=== PATIENT | female | born 1970 | race Caucasian/White ===

== ENCOUNTER 2020-05-15 09:54 | Emergency (ER) | payer OTHER, SELFPAY ==
[2020-05-15 09:58] VITALS: BP 117/70; PULSE 73; RESP 16; TEMP 36.6; O2SAT 100
--- NOTE | 2020-05-15 10:00 | ED.FEMALEGU ---
HPI - Female Genitourinary General Chief complaint: Urogenital-Female Stated complaint: headache aches frequent urination Time Seen by Provider: 05/15/20 10:01 Source: patient History of Present Illness HPI Narrative: PATIENT PRESENTS WITH BURNING WITH URINATION, NO CONCERN FOR STD, NO ABDOMINAl and no pelvic pain. no hx of kidney stones. Patient deneis any gross hematuria. MD elicited complaint: dysuria Related Data Home Medications Medication Instructions Recorded Confirmed bupropion HCl 150 mg PO DAILY 07/02/19 05/15/20 citalopram mg 07/02/19 meloxicam 15 mg tablet 15 mg PO DAILY 09/16/19 quetiapine 300 mg tablet 300 mg PO .qhs tablet 04/01/20 cyclobenzaprine 5 mg PO TID PRN 05/15/20 05/15/20 Allergies Allergy/AdvReac Type Severity Reaction Status Date / Time No Known Allergies Allergy Unknown Unverified 04/01/20 13:26 Review of Systems Review of Systems: Narrative: CONSTITUTIONAL: Denies fever, chills, or sweats. EYES: Denies visual changes, redness, or discharge. ENT: Denies rhinorrhea, congestion, sore throat, or otalgia. CARDIOVASCULAR: Denies chest pain, palpitations, or edema. RESPIRATORY: Denies cough or dyspnea. GASTROINTESTINAL: Denies abdominal pain, nausea, vomiting, or diarrhea. GENITOURINARY: Denies dysuria or hematuria. SKIN: Denies rash or itching. MUSCULOSKELETAL: Denies back pain, joint pain, or myalgia. NEUROLOGIC: Denies headache, numbness, or weakness. PSYCHIATRIC: Denies anxiety or depression. [facility] Social History Social History Smoking status: Heavy tobacco smoker Alcohol intake: current Substance use: current Other substance usage details: Tramadol Comments At time of signature, agree with nursing past medical, surgical, social and family history. There is no relevant family history pertinent to the presenting complaint Patient states she has had urinary tract infections in the past and usually presents with same symptoms as she has today. patient denies any upper resp infection. patient deneis any exposure to covid 19 and denies any cough or fever. Exam Narrative: Exam Narrative: GENERAL: Well-appearing, well-nourished, and in no acute distress. HEAD: Normocephalic, atraumatic. EYES: PERRLA and EOMI. ENT: Nares clear, no rhinorrhea or epistaxis. Mucous membranes moist. NECK: Supple. CHEST: Clear to auscultation. No respiratory distress. HEART: Regular rate and rhythm. No murmur heard. Normal peripheral pulses. ABDOMEN: Soft, nontender, nondistended, normal active bowel sounds. EXTREMITIES: Normal range of motion. No edema. SKIN: Warm, dry, no rash. NEURO: No focal deficits. Alert and oriented x3. [place] Coma Scale Eye Opening: Spontaneous 4 [place] Coma Scale Motor: Obeys Commands 6 [place]iella Coma Scale Verbal: Oriented 5 Daniella Coma Scale Total 15 Course Vital Signs Vital signs: Vital Signs Temperature 36.6 C 05/15/20 09:58 Pulse Rate 73 05/15/20 09:58 Respiratory Rate 16 05/15/20 09:58 Blood Pressure 117/70 05/15/20 09:58 Pulse Oximetry 100 05/15/20 09:58 Temperature 36.6 C 05/15/20 09:58 Pulse Rate 73 05/15/20 09:58 Respiratory Rate 16 05/15/20 09:58 Blood Pressure 117/70 05/15/20 09:58 Pulse Oximetry 100 05/15/20 09:58 MDM - Female Genitourinary Differential Diagnosis Differential diagnosis: Likely urinary tract infection, bacterial vaginosis, trichomoniasis, cervicitis, vaginitis, ruptured ovarian cyst, cyst of Bartholin's gland, cystitis and dysmenorrhea Lab Data Labs: Urine Glucose Negative Reference Range: Negative Urine Bilirubin Negative Reference Range: Negative Urine Ketone Negative Reference Range: Negative Urine Specific [place] 1.015 Reference Range:1.001-1.035 Urine Blood 1+ Reference Range: Negative * *
== END 2020-05-15 10:15 | disposition home or self-care (01) ==
PROVIDERS: Emergency Provider Nurse Practitioner Family; PCP Family Medicine
DX: N39.0 Urinary tract infection, site not specified (principal); F17.200 Nicotine dependence, unspecified, uncomplicated; I10 Essential (primary) hypertension; F41.9 Anxiety disorder, unspecified; F32.9 Major depressive disorder, single episode, unspecified
CPT/HCPCS: 81003; 87086; 87088; 99213; G0463

== ENCOUNTER 2021-08-30 10:38 | Emergency (ER) | payer MEDICARE, MEDICAID, SELFPAY ==
--- NOTE | 2021-08-30 10:45 | ED.GENADULT ---
HPI - General Adult General Chief complaint: Unspecified Stated complaint: Need meds Time Seen by Provider: 08/30/21 10:45 Source: patient and RN notes reviewed History of Present Illness HPI narrative: Patient is a 51-year-old female who presents the urgent care with request for med refill. Patient states that she has been out of her medications for approximately 2 months and has been having some headaches due to her elevated blood pressure. Patient is requesting Celebrex and lisinopril/HCTZ. Patient states that she went to a local physician who recently retired and she has not followed up in their office to see the new provider. Patient states that she plans on getting a new PCP in [place] when she moves in 2 weeks. Patient has no acute complaints at this time. No acute distress noted. Patient aware of the plan of care. Some parts of this dictation were generated by voice recognition software and may contain typographical and/or grammatical inaccuracies. Related Data Home Medications Medication Instructions Recorded Confirmed bupropion HCl 150 mg PO DAILY 07/02/19 08/30/21 citalopram 20 mg PO DAILY 07/02/19 08/30/21 quetiapine 300 mg PO HS 05/15/20 08/30/21 Allergies Allergy/AdvReac Type Severity Reaction Status Date / Time No Known Allergies Allergy Unknown Verified 08/30/21 10:51 Review of Systems Review of Systems: CONSTITUTIONAL: Denies fever, chills, or sweats. EYES: Denies visual changes, redness, or discharge. ENT: Denies rhinorrhea, congestion, sore throat, or otalgia. CARDIOVASCULAR: Denies chest pain, palpitations, or edema. RESPIRATORY: Denies cough or dyspnea. GASTROINTESTINAL: Denies abdominal pain, nausea, vomiting, or diarrhea. GENITOURINARY: Denies dysuria or hematuria. SKIN: Denies rash or itching. MUSCULOSKELETAL: Denies back pain, joint pain, or myalgia. NEUROLOGIC: Denies headache, numbness, or weakness. All other systems reviewed are negative, except as documented in HPI. [facility] Past Medical History Medical History (Updated 08/30/21 @ 11:02 by ABNER James) Anxiety Back pain Chronic back pain Bulging disks at L4 and L5 COPD (chronic obstructive pulmonary disease) Depression Fibroids Hypertension Tibia/fibula fracture Surgical History Surgical History H/O tubal ligation History of orthopedic surgery History of tonsillectomy Right tib/fib repair with plate and screws in 2010 Family History Family History Father Hypertension Mother Family history of lymphoma Social History Social History (Updated 10/28/20 @ 12:56 by Jacquelyn Rajan [facility]) Smoking packs per day: 0.5 Smoking cigarettes per day: 10.0 Years smoked: 30 Smoking pack-years: 15.00 Smoking status: Heavy tobacco smoker Alcohol intake: current Alcohol use details: 1 drink once or twice a month Substance use: never Other substance usage details: Tramadol Comments At the time of my signature, I reviewed and agree with the nursing past medical, surgical, social, and family history. There is no relevant family history pertinent to the patient complaint. Exam Narrative: GENERAL: This is a well-nourished, well-developed patient, in no apparent distress. HEAD: normocephalic, atraumatic. EYES: PERRL. Sclera clear/white. Vision is grossly intact. EARS: External ears normal NOSE: External nose normal with no obvious nasal discharge, nares without redness, no rhinorrhea. THROAT: Mucous membranes moist NECK: Neck supple, SKIN: warm, intact with no suspicious lesions or rash, good texture and turgor. NEURO: awake, alert, and oriented to person, place and time. There were no obvious focal neurologic abnormalities. EXTREMITIES: No clubbing, cyanosis, or edema. Course Course Level of Care: Express Care Visit Vital Signs Vital signs: Vital Signs Temperature 98.0 F 08/30
[2021-08-30 10:46] VITALS: BP 153/82; PULSE 60; RESP 18; TEMP 36.7; O2SAT 99
[2021-08-30 10:52] VITALS: BP 153/82; PULSE 60; RESP 18; TEMP 36.7; O2SAT 99
== END 2021-08-30 11:06 | disposition home or self-care (01) ==
PROVIDERS: Emergency Provider Nurse Practitioner Family
DX: Z76.0 Encounter for issue of repeat prescription (principal); F17.210 Nicotine dependence, cigarettes, uncomplicated; J44.9 Chronic obstructive pulmonary disease, unspecified; I10 Essential (primary) hypertension; F41.9 Anxiety disorder, unspecified; F32.A Depression, unspecified
CPT/HCPCS: 99211; G0463

== ENCOUNTER 2023-07-10 10:38 | Emergency (ER) | payer OTHER, SELFPAY ==
[2023-07-10 10:46] VITALS: BP 103/64; PULSE 71; RESP 20; TEMP 36.6; O2SAT 97
--- NOTE | 2023-07-10 10:52 | ED.BACK ---
HPI - Back Pain/Injury General Chief Complaint: Back Pain/Injury Stated Complaint: Back Pain Source: patient and RN notes reviewed History of Present Illness HPI Narrative: 53 yo F presents to urgent care with complaints of bilateral lower back pain that radiates to both sides of buttocks and down back of right leg intermittently. Pt reports intermittent tingling in her right toes. Pt states a couple days ago, she was lifting the big bins of [employer] when she knows she should have asked for help. Pt denies any specific injury or sharp pain during this time. Pt reports hx of back issues chronically. Pt states she has had to lay on her side for relief. Pt has been taking Tylenol at home with minimal relief. Related Data Home Medications Medication Instructions Recorded Confirmed bupropion HCl 150 mg 24 hr tablet, 150 mg PO DAILY 07/02/19 07/10/23 extended release citalopram 20 mg tablet 20 mg PO DAILY 07/02/19 07/10/23 quetiapine 100 mg tablet 300 mg PO HS 05/15/20 07/10/23 Allergies Allergy/AdvReac Type Severity Reaction Status Date / Time No Known Allergies Allergy Unknown Verified 07/10/23 10:56 Review of Systems Review of Systems: CONSTITUTIONAL: Denies fever, chills, or sweats. EYES: Denies visual changes, redness, or discharge. ENT: Denies otalgia and sore throat CARDIOVASCULAR: Denies chest pain, palpitations, or edema. RESPIRATORY: Denies cough or dyspnea. GASTROINTESTINAL: Denies abdominal pain, nausea, vomiting, or diarrhea. GENITOURINARY: Denies dysuria or hematuria. SKIN: Denies rash or itching. NEUROLOGIC: Denies headache, numbness, or weakness. Pertinent positives per HPI. [facility] Past Medical History Medical History (Updated 07/10/23 @ 11:05 by Nidia Sahu, ALEJANDRO) Anxiety Back pain Chronic back pain Bulging disks at L4 and L5 COPD (chronic obstructive pulmonary disease) Depression Fibroids Hypertension Tibia/fibula fracture Surgical History Surgical History H/O tubal ligation History of orthopedic surgery History of tonsillectomy Right tib/fib repair with plate and screws in 2010 Family History Family History Father Hypertension Mother Family history of lymphoma Social History Social History (Updated 10/28/20 @ 12:56 by Jacquelyn Rajan [facility]) Smoking packs per day: 0.5 Smoking cigarettes per day: 10.0 Years smoked: 30 Smoking pack-years: 15.00 Smoking status: Heavy tobacco smoker Alcohol intake: current Alcohol use details: 1 drink once or twice a month Substance use: never Other substance usage details: Tramadol Comments At the time of my signature, I reviewed and agree with the nursing past medical, surgical, social, and family history. There is no relevant family history pertinent to the patient complaint. Exam Narrative: GENERAL: This is a well-nourished, well-developed patient, in no apparent distress. HEAD: normocephalic, atraumatic. EYES: Sclera clear/white. Vision is grossly intact. EARS: External ears normal, auditory canals clear and without drainage. Hearing grossly intact. NOSE: External nose normal with no obvious nasal discharge, nares without redness, no rhinorrhea. THROAT: Mucous membranes moist, posterior pharynx clear. NECK: Neck supple, non-tender without lymphadenopathy, masses or thyromegaly. CARDIOVASCULAR: Regular rate and rhythm without murmurs, gallops, or rubs. RESPIRATORY: Clear to auscultation. Breath sounds equal bilaterally. No wheezes, rales, or rhonchi. SKIN: warm, intact with no suspicious lesions or rash, good texture and turgor. NEURO: awake, alert, and oriented to person, place and time. There were no obvious focal neurologic abnormalities. EXTREMITIES: No clubbing, cyanosis, or edema. No joint tenderness, effusion, or edema noted. BACK: Tenderness to mid lower and bilateral lower back.
== END 2023-07-10 11:10 | disposition home or self-care (01) ==
PROVIDERS: Emergency Provider Nurse Practitioner Family; PCP Physician Assistant
DX: M54.31 Sciatica, right side (principal); F17.210 Nicotine dependence, cigarettes, uncomplicated; J44.9 Chronic obstructive pulmonary disease, unspecified; I10 Essential (primary) hypertension; F41.9 Anxiety disorder, unspecified; F32.A Depression, unspecified
CPT/HCPCS: 99213; G0463

== ENCOUNTER 2023-10-24 15:52 | Emergency (ER) | payer OTHER, SELFPAY ==
[2023-10-24] VITALS (46 sets, daily range): BP systolic 78–141; BP diastolic 48–79; PULSE 60–92; RESP 12–37; TEMP 36.4–37.3; O2SAT 88–100
--- NOTE | ~2023-10-24 | CT_ITS ---
EXAMINATION: CT brain wo con DATE: 10/24/2023 16:27 INDICATION: Dyskinesia. Facial twitching. Speech deficit. TECHNIQUE: Computed tomography (CT) of the head was performed without intravenous contrast. The mA wa s adjusted according to patient size. Iterative reconstruction technique was employed. The dose-lengt h product was 605.33 mGy-cm. COMPARISON: None FINDINGS: There is no intracranial hemorrhage, acute infarction, or abnormal intracranial mass lesion . The ventricles are normal in size. There is mild mucosal thickening in the paranasal sinuses. The o rbits are normal. The mastoid air cells are normal. IMPRESSION: 1. Normal brain. Reviewed, dictated and finalized at location A. IMPRESSION: 1. Normal brain.
[2023-10-24] MEDS: diphenhydrAMINE HCl INJ 50 MG/ML VIAL 25 MG IM (16:08)
--- NOTE | 2023-10-24 16:12 | ECG_ITS ---
Measurements Intervals Tram Rate: 65 P: 66 OK: 138 QRS: 51 QRSD: 92 T: 83 QT: 374 QTc: 389 Interpretive Statements SINUS RHYTHM NONSPECIFIC ST-T WAVE ABNORMALITY- ANT/HIGH LAT LEADS BASELINE ARTIFACT- I, II, III, AVR, AVL, AVF, V1-V3 BORDERLINE ECG NO PREVIOUS ECG AVAILABLE FOR COMPARISON Electronically Signed On 10-24-2023 19:53:07 CDT by Scott Lafleur D.O.
--- NOTE | 2023-10-24 16:15 | ED.GENADULT ---
HPI - General Adult General Chief complaint: Unspecified Stated complaint: muscle spasms in face and difficulty speaking Time Seen by Provider: 10/24/23 16:02 Source: patient Mode of arrival: ambulatory Limitations: no limitations History of Present Illness HPI narrative: 53-year-old female, smoker, marijuana user with a history of hypertension COPD, chronic low back pain, PTSD, anxiety / depression whether recent increase of dose of her Seroquel 600 mg at bedtime presents to the ER with multiple week history of -- muscle twitching involving her face and maximally noted around the mouth and jaw. No prior episodes of dyskinetic movements. These involve her extremities infrequently. These are present all throughout the day and night. No focal neuro deficit. No fever or chills. No focal neuro deficits. Onset (ago): week(s) Location: face Radiation: non-radiation Severity: severe Quality: aching Relieving factors: none Exacerbating factors: none Associated symptoms: denies other symptoms Related Data Home Medications Medication Instructions Recorded Confirmed citalopram 20 mg tablet 20 mg PO DAILY 07/02/19 10/24/23 quetiapine 100 mg tablet 600 mg PO HS 05/15/20 10/24/23 meloxicam 15 mg tablet 15 mg PO DAILY 10/24/23 10/24/23 Allergies Allergy/AdvReac Type Severity Reaction Status Date / Time No Known Allergies Allergy Unknown Verified 10/24/23 16:08 Review of Systems Review of Systems: All systems reviewed & are unremarkable except as noted in HPI and below Constitutional: Constitutional: Reports as per HPI and Reports no additional constitutional complaints Eyes: Eyes: Reports as per HPI and Reports no additional eye complaints ENT: Reports system reviewed and no additional complaints, except as documented and Reports as per HPI Cardiovascular: Cardiovascular: Reports as per HPI and Reports no additional cardiovascular complaints Respiratory: Respiratory: Reports as per HPI and Reports no additional respiratory complaints Gastrointestinal: Gastrointestinal: Reports as per HPI and Reports no additional gastrointestinal complaints Genitourinary: Genitourinary: Reports no additional female genitourinary complaints Musculoskeletal: Musculoskeletal: Reports no additional musculoskeletal complaints and Reports as per HPI Comments: Continuous muscle twitching/ dyskinesia which is maximal in her face. Integumentary/Breasts: Skin/Breast: Reports system reviewed and no additional complaints, except as docu and Reports as per HPI Neurologic: Reports system reviewed and no additional complaints, except as documented and Reports as per HPI Psychiatric: Psychiatric: Reports no additional psychiatric complaints and Reports as per HPI Endocrine: Endocrine: Reports no additional endocrine complaints and Reports as per HPI Hematologic/Lymphatic: Hematologic/Lymphatic: Reports no additional hematologic/lymphatic complaints and Reports as per HPI Allergic/Immunologic: Allergic/Immunologic: Reports no additional allergic/immunologic complaints and Reports as per HPI [facility] Past Medical History Medical History (Updated 10/24/23 @ 19:05 by Christiano Pompa MD) Anxiety Back pain Chronic back pain Bulging disks at L4 and L5 COPD (chronic obstructive pulmonary disease) Depression Fibroids Hypertension Tibia/fibula fracture Surgical History Surgical History H/O tubal ligation History of orthopedic surgery History of tonsillectomy Right tib/fib repair with plate and screws in 2010 Family History Family History Father Hypertension Mother Family history of lymphoma Social History Social History Smoking packs per day: 0.5 Smoking cigarettes per day: 10.0 Years smoked: 30 Smoking pack-years: 15.00 Smoking status: Heavy tobacco
[2023-10-24 16:24] LABS: Basophils Absolute Auto 0.04 K/mm3 (0.00-0.10); Basophils Percent Auto 0.3 % (0.0-1.0); Eosinophils Absolute Auto 0.17 K/mm3 (0.02-0.50); Eosinophils Percent Auto 1.2 % (1.0-6.0); Hematocrit 33.5 % (35.0-49.0); Hemoglobin 11.1 g/dL (12.0-15.0); Immature Granulocyte Absolute 0.07 K/mm3 (0.00-0.00); Immature Granulocyte Percent A 0.5 % (0.0-0.0); Lymphocytes Absolute Auto 3.67 K/mm3 (1.10-4.50); Lymphocytes Percent Auto 26.2 % (18.0-42.0); Mean Corpuscular HGB Conc 33.1 g/dL (32-36); Mean Corpuscular Hemoglobin 28.7 pg (27.0-31.0); Mean Corpuscular Volume 86.6 fL (78.0-102.0); Mean Platelet Volume 8.7 fl (9.2-11.8); Monocytes Absolute Auto 0.91 K/mm3 (0.10-0.90); Monocytes Percent Auto 6.5 % (2.0-11.0); Neutrophils Absolute Auto 9.15 K/mm3 (1.70-7.20); Neutrophils Percent Auto 65.3 % (50.0-70.0); Platelet Count Result 343 K/mm3 (150-420); Red Blood Count 3.87 M/mm3 (4.20-5.40); Red Cell Distribution Width 14.3 % (11.6-14.4)
[2023-10-24 16:43] LABS: Alanine Aminotransferase 43 U/L (14-59); Albumin Level 3.6 g/dL (3.4-5.0); Alkaline Phosphatase 72 U/L (46-116); Anion Gap 11 mmol/L (8-16); Aspartate Amino Transferase 28 U/L (15-37); Bilirubin,Total 0.3 mg/dL (0.00-1.00); Blood Urea Nitrogen 18 mg/dL (7-18); Calcium 8.7 mg/dL (8.5-10.1); Carbon Dioxide 25 mmol/L (21-32); Chloride 104 mmol/L (98-108); Estimated CRCL calculation 33 ml/min; Estimated Glomerular Filt Rate 34; Glucose 103 mg/dL (70-99); Magnesium 1.8 mg/dL (1.8-2.4); Osmolality Calculated 291 mOsm/kg (285-295); Potassium 4.2 mmol/L (3.5-5.1); Sodium 140 mmol/L (136-145); Total Protein 6.9 g/dL (6.4-8.2)
[2023-10-24 16:44] LABS: Troponin I < 4.0 ng/L (0.00-60.4)
[2023-10-24] MEDS: LORazepam INJ (*CRX) 2 MG/ML VIAL IV PUSH (16:50)
[2023-10-24] MEDS: levETIRAcetam 1000MG/NACL100ML 1,000 MG/100 ML BAG 400 MG IVPB (16:55)
--- NOTE | 2023-10-24 17:00 | PC.NURSE ---
[id number]- friend called staff to bedside. pt pulling left arm to mouth and jerking . resp intact. pt eyes open, no response to commands. erp at bedside. pt laid down on stretcher. rails ^. airway monitored. jerking lasted about 1 min. then subsided. resp remain through clenched jaw.
[2023-10-24] MEDS: ONDANSETRON INJ 4 MG/2 ML VIAL IV PUSH (17:29)
--- NOTE | 2023-10-24 17:34 | PC.NURSE ---
1725 - ct scan exam pushed electronically into [facility] system per radio frequency technician.
[2023-10-24] MEDS: SODIUM CHLORIDE 0.9% IV 1,000 ML 999 ML IV CONT (17:56)
[2023-10-24] MEDS: PROCHLORPERAZINE EDISYLATE 10 MG/2 ML VIAL IV PUSH (18:01)
--- NOTE | 2023-10-24 18:15 | PC.NURSE ---
Report received, pt sitting upright in bed c fluids infusing per order. Pt noted to have slurred speech but communicates and understands well. Discussed transfer c pt. and her friend at bedside. Awaiting call back from [facility] for bed assignment.
[2023-10-24] MEDS: LACTATED RINGERS 1,000 ML 999 ML IV CONT (18:53)
--- NOTE | 2023-10-24 19:28 | PC.NURSE ---
Call back received fro [facility], will be changing pt to an IMU bed and will await call back for placement. Pt and friend informed on change of plans c bed placement.
[2023-10-24 19:31] LABS: Appearance Urine Clear (Clear); Bilirubin Urine Negative (Negative); Blood Urine 1+ (Negative); Color Urine Light Yellow (Yellow); Glucose Urine UA Negative (Negative); Ketones Urine Negative (Negative); Leukocyte Esterase Ur Negative LEU/UL (Negative); Nitrate Urine Negative (Negative); Protein Urine Negative (Negative); Specific Grav Ur >= 1.030 (1.010-1.020); Urobilinogen Urine 0.2 mg/dL (0.2-1.0)
[2023-10-24 19:38] LABS: Amphetamine Screen Urine Negative (Negative); Barbiturate Screen Urine Negative (Negative); Benzodiazepines Screen Urine Negative (Negative); Cannabinoid Screen Urine Positive (Negative); Cocaine Screen Urine Negative (Negative); Methadone Screen Urine Negative (Negative); Opiate Screen Urine Negative (Negative); Phencyclidine Screen Urine Negative (Negative)
[2023-10-24 19:45] LABS: Add Urine Microscopic? YES; Bacteria Urine Trace /hpf; RBC Urine 0-2 /hpf (0-2); Squamous Epithelial Cell Urine Rare /hpf (Few); WBC Urine 0-3 /hpf (0-3)
--- NOTE | 2023-10-24 20:13 | PC.NURSE ---
Room assignment given per Tre's report given and paperwork signed for transfer.
[2023-10-24 20:20] LABS: Troponin I 143.8 ng/L (0.00-60.4)
--- NOTE | 2023-10-24 20:28 | PC.NURSE ---
[facility] placed on hold for transfer due to elevated trop coming back. Dr Pompa informed, call placed to [facility] transfer line and spoke to SHIREEN Allan to update on lab value. She will talk c hospitalist to see if ok to still transfer to same bed as planned, awaiting call back from [facility]. Pt resting, no changes in condition. A&O x3 no pain per pt report. NSR on monitor.
[2023-10-24] MEDS: LACTATED RINGERS 1,000 ML 150 ML IV CONT (21:54)
--- NOTE | 2023-10-31 13:25 | PC.NURSE ---
blood culture reviewed, no growth after 5 days
== END 2023-10-24 23:26 | disposition short-term general hospital (02) ==
PROVIDERS: Emergency Provider Internal Medicine Critical Care Medicine; PCP Physician Assistant
DX: N17.9 Acute kidney failure, unspecified (principal); R56.9 Unspecified convulsions; J44.9 Chronic obstructive pulmonary disease, unspecified; I10 Essential (primary) hypertension; F17.210 Nicotine dependence, cigarettes, uncomplicated; Z79.1 Long term (current) use of non-steroidal anti-inflammatories (NSAID); Z79.899 Other long term (current) drug therapy
CPT/HCPCS: 36415; 70450; 80053; 80307; 81001; 83735; 84484; 85025; 87040; 93005; 96361; 96365; 96375; 99285; J0780; J1200; J1953; J2060; J2405; J7030; J7120

== ENCOUNTER 2024-07-22 08:08 | Emergency (ER) | payer OTHER, SELFPAY ==
--- NOTE | 2024-07-22 08:14 | ED.URI ---
HPI - URI/Sore Throat General Chief Complaint: Upper Respiratory Infection Stated Complaint: upper respiratory/throat/fever Time Seen by Provider: 07/22/24 08:14 Source: patient, RN notes reviewed and old records reviewed Mode of arrival: ambulatory Limitations: no limitations History of Present Illness HPI Narrative: 54-year-old female to Express Care with complaint body aches, sinus pressure, fever, postnasal drainage, chills, sore throat, headache for 3 days. Patient reports treating at home with Tylenol. Patient reports history of allergy to Benadryl. Patient denies shortness of breath, difficulty swallowing, chest pain, GI complaints. Patient able tolerate fluids by mouth. Patient hypertensive in triage. Patient resting comfortably in exam room in no acute distress, appears tired. Related Data Home Medications ?Medication ?Instructions ?Recorded ?Confirmed ?Last Taken ?Type citalopram 20 mg tablet 20 mg PO DAILY 07/02/19 07/22/24 Unknown History quetiapine 100 mg tablet 600 mg PO HS 05/15/20 10/24/23 Unknown History meloxicam 15 mg tablet 15 mg PO DAILY 10/24/23 10/24/23 Unknown History Allergies Allergy/AdvReac Type Severity Reaction Status Date / Time No Known Allergies Allergy Unknown Verified 07/22/24 09:00 Review of Systems Review of Systems: All systems reviewed & are unremarkable except as noted in HPI and below Constitutional: Constitutional: Reports as per HPI, Reports body ache(s), Reports chills and Reports fever(s) Eyes: Eyes: Reports no additional eye complaints ENT: Reports as per HPI, Reports post nasal drip and Reports sore throat Cardiovascular: Cardiovascular: Reports no additional cardiovascular complaints, Denies chest pain and Denies dyspnea Respiratory: Respiratory: Reports no additional respiratory complaints, Denies cough and Denies dyspnea Musculoskeletal: Musculoskeletal: Reports no additional musculoskeletal complaints Neurologic: Reports system reviewed and no additional complaints, except as documented Psychiatric: Psychiatric: Reports no additional psychiatric complaints PMFSH Past Medical History Medical History Tibia/fibula fracture Anxiety Depression Chronic back pain Bulging disks at L4 and L5 Back pain Fibroids COPD (chronic obstructive pulmonary disease) Hypertension Surgical History Surgical History History of orthopedic surgery H/O tubal ligation History of tonsillectomy Right tib/fib repair with plate and screws in 2010 Family History Family History Father Hypertension Mother Family history of lymphoma Social History Social History Smoking packs per day: 0.5 Smoking cigarettes per day: 10.0 Years smoked: 30 Smoking pack-years: 15.00 Smoking status: Heavy tobacco smoker Alcohol intake: current Alcohol use details: 1 drink once or twice a month Substance use: never Other substance usage details: Tramadol Comments At the time of my signature, I reviewed and agree with the nursing past medical, surgical, social, and family history. There is no relevant family history pertinent to the patient complaint. Exam Const: General: cooperative, no acute distress, alert, tired appearing and well nourished Nutritional Appearance: well nourished Orientation/consciousness: patient oriented x3 Limitations: no limitations HENMT: Head: normal to inspection Ears: external ears normal Face/Nose/Sinus: Normal external nose present, Normal nares present, Abnormal mucous membranes and turbinates present boggy and erythematous, normal facial exam, No erythema and No edema Face and sinus: normal facial exam, no erythema, no edema and sinus tenderness Mouth: Yes Normal oral and palatal mucosa present Throat: uvula midline, posterior oropharynx abnormal erythema and postnasal drainage Eyes: General: appearance normal, both eyes and all related structures Neck: Neck: normal visual inspection, full ROM and no meningeal signs Lymphatic: no lymphadenopathy noted and no lymphedema noted Chest: Chest palpation & inspection: normal inspection of the chest Resp: Effort & Inspection: normal respiratory effort and able to speak in complete sentences Auscultation: clear to auscultation bilaterally Cardio: Jugular venous distension: no JVD Rate: regular rate Rhythm: regular rhythm Back/Spine/Pelvis: Cervical Spine: cervical ROM normal Skin: General skin exam: normal color, no rashes or lesions noted and turgor normal Neuro: General: patient oriented x3, gait normal, moves all extremities and no meningeal signs Speech: normal speech Gait exam (Neuro): Normal gait present Extrem: General: normal to inspection, full ROM and capillary refill normal Psych: Appearance: grossly normal and well kempt Course Course Emergency Course: Some parts of this dictation were generated by voice recognition software and may contain typographical and/or grammatical inaccuracies. Level of Care: Express Care Visit Vital Signs Vital signs: Vital Signs Temperature 37.2 C 07/22/24 08:30 Pulse Rate 78 07/22/24 08:30 Respiratory Rate 20 07/22/24 08:30 Blood Pressure 147/77 H 07/22/24 08:30 Pulse Oximetry 100 07/22/24 08:30 Oxygen Delivery Room Air 07/22/24 08:30 Temperature 37.2 C 07/22/24 08:30 Pulse Rate 78 07/22/24 08:30 Respiratory Rate 20 07/22/24 08:30 Blood Pressure 147/77 H 07/22/24 08:30 Pulse Oximetry 100 07/22/24 08:30 Oxygen Delivery Room Air 07/22/24 08:30 reviewed MDM - URI/Sore Throat MDM Narrative Medical decision making narrative: 54-year-old female to Express Care with complaint body aches, sinus pressure, fever, Postnasal drainage, chills, sore throat, headache for 3 days. Patient reports treating at home with Tylenol. Patient reports history of allergy to Benadryl. Patient denies shortness of breath, difficulty swallowing, chest pain, GI complaints. Patient able tolerate fluids by mouth. Patient hypertensive in triage. Patient resting comfortably in exam room in no acute distress, appears tired. on exam, bilateral nares erythematous and boggy sinus tenderness, posterior oropharynx erythematous with postnasal drainage. Patient is sitting comfortably in exam room nontoxic in appearance. Patient appropriate for outpatient treatment and follow-up. Discharge instructions reviewed with patient, as well as provided in writing per nursing staff. The instructions also include specific and strict return/GO TO THE ER as well as f/u information. All questions have been answered, and the patient deny any further questions with discharge and discharge plan. Some parts of this dictation were generated by voice recognition software and may contain typographical and/or grammatical inaccuracies. Differential Diagnosis Differential diagnosis: Likely upper respiratory infection, croup, otitis media, sinusitis, viral infection, bronchitis, influenza and pharyngitis Discharge Plan Discharge Clinical Impression: Sinusitis Patient Disposition: Home, Self-Care Condition: Stable Instructions: Antibiotic Form Additional Instructions: Please finish entire course of antibiotic treatment -Alternate Tylenol and Motrin per package directions for fever or pain. -Antihistamine medication Zyrtec/Claritin/Magalis during the day can help improve symptoms. -Use Flonase twice a day for 5 days then daily to help reduce the inflammation and dry up your sinuses. -You can also use Sudafed or Mucinex. Be sure to drink plenty of water with these medications at least 8 ounces with every dose and it is important to drink 8 to 10 glasses of water per day. Water is a natural decongestant -Eat and drink things that are easy to swallow, like tea or soup, or popsicles. -Oral rinses such as: Salt water gargles and/or may use topical anesthetic (eg. Chloraseptic spray) or lozenges to relieve dryness or throat pain). -Frequent hand washing or hand certified scrub tech is one of the best ways to prevent spread of infection. -Using a vaporizer or humidifier at night will also help thin secretions and help with coughing up phlegm. -Follow up with primary care provider in 2-3 days if condition is not improving; or seek ER visit if you have trouble breathing, cannot drink enough fluids, have muffled voice, difficulty opening your mouth, or severe swelling. Patient Language: Turkish Prescriptions: New amoxicillin 875 mg tablet 875 mg PO Q12H Qty: 20 0RF prednisone 20 mg tablet 40 mg PO DAILY Qty: 10 0RF No Action meloxicam 15 mg tablet 15 mg PO DAILY quetiapine 100 mg Tablet 600 mg PO HS citalopram 20 mg tablet 20 mg PO DAILY lisinopril-hydrochlorothiazide [Zestoretic] 20-12.5 mg tablet 1 tablet PO DAILY Qty: 90 1RF Follow-up/Referrals: UNKNOWN,DOCTOR [Non-Staff] - Stand Alone Forms: Work/School Release IP
[2024-07-22 08:30] VITALS: BP 147/77; PULSE 78; RESP 20; TEMP 37.2; O2SAT 100
--- NOTE | 2024-07-22 08:39 | ED_ITS ---
HPI - URI/Sore Throat General Chief Complaint: Upper Respiratory Infection Stated Complaint: upper respiratory/throat/fever Time Seen by Provider: 07/22/24 08:14 Source: patient, RN notes reviewed and old records reviewed Mode of arrival: ambulatory Limitations: no limitations Related Data Home Medications ?Medication ?Instructions ?Recorded ?Confirmed ?Last Taken ?Type citalopram 20 mg tablet 20 mg PO DAILY 07/02/19 07/22/24 Unknown History quetiapine 100 mg tablet 600 mg PO HS 05/15/20 10/24/23 Unknown History meloxicam 15 mg tablet 15 mg PO DAILY 10/24/23 10/24/23 Unknown History Allergies Allergy/AdvReac Type Severity Reaction Status Date / Time No Known Allergies Allergy Unknown Verified 07/22/24 09:00 Review of Systems Review of Systems: All systems reviewed & are unremarkable except as noted in HPI and below Constitutional: Constitutional: Reports no additional constitutional complaints Eyes: Eyes: Reports no additional eye complaints ENT: Reports system reviewed and no additional complaints, except as documented Cardiovascular: Cardiovascular: Reports no additional cardiovascular complaints, Denies chest pain and Denies dyspnea Respiratory: Respiratory: Reports no additional respiratory complaints, Denies cough and Denies dyspnea Musculoskeletal: Musculoskeletal: Reports no additional musculoskeletal complaints Neurologic: Reports system reviewed and no additional complaints, except as documented Psychiatric: Psychiatric: Reports no additional psychiatric complaints [facility] Past Medical History Medical History Tibia/fibula fracture Anxiety Depression Chronic back pain Bulging disks at L4 and L5 Back pain Fibroids COPD (chronic obstructive pulmonary disease) Hypertension Surgical History Surgical History History of orthopedic surgery H/O tubal ligation History of tonsillectomy Right tib/fib repair with plate and screws in 2010 Family History Family History Father Hypertension Mother Family history of lymphoma Social History Social History Smoking packs per day: 0.5 Smoking cigarettes per day: 10.0 Years smoked: 30 Smoking pack-years: 15.00 Smoking status: Heavy tobacco smoker Alcohol intake: current Alcohol use details: 1 drink once or twice a month Substance use: never Other substance usage details: Tramadol Comments At the time of my signature, I reviewed and agree with the nursing past medical, surgical, social, and family history. There is no relevant family history pertinent to the patient complaint. Exam Const: General: cooperative, healthy appearing, comfortable, no acute distress, alert and well nourished Nutritional Appearance: well nourished Orientation/consciousness: patient oriented x3 Limitations: no limitations HENMT: Head: normal to inspection Ears: external ears normal Face/Nose/Sinus: Normal external nose present, Normal nares present, normal facial exam, No erythema and No edema Face and sinus: normal facial exam, no erythema and no edema Mouth: Yes Normal oral and palatal mucosa present Eyes: General: appearance normal, both eyes and all related structures Neck: Neck: normal visual inspection, full ROM and no meningeal signs Lymphatic: no lymphadenopathy noted and no lymphedema noted Chest: Chest palpation & inspection: normal inspection of the chest Resp: Effort & Inspection: normal respiratory effort and able to speak in complete sentences Auscultation: clear to auscultation bilaterally Cardio: Jugular venous distension: no JVD Rate: regular rate Rhythm: regular rhythm Back/Spine/Pelvis: Cervical Spine: cervical ROM normal Skin: General skin exam: normal color, no rashes or lesions noted and turgor normal Neuro: General: patient oriented x3, gait normal, moves all extremities and no meningeal signs Speech: normal speech Gait exam (Neuro): Normal gait present Extrem: General: normal to inspection, full ROM and capillary refill normal Psych: Appearance: grossly normal and well kempt Course Course Emergency Course: Some parts of this dictation were generated by voice recognition software and may contain typographical and/or grammatical inaccuracies. Level of Care: Express Care Visit Vital Signs Vital signs: Vital Signs Temperature 37.2 C 07/22/24 08:30 Pulse Rate 78 07/22/24 08:30 Respiratory Rate 20 07/22/24 08:30 Blood Pressure 147/77 H 07/22/24 08:30 Pulse Oximetry 100 07/22/24 08:30 Oxygen Delivery Room Air 07/22/24 08:30 Temperature 37.2 C 07/22/24 08:30 Pulse Rate 78 07/22/24 08:30 Respiratory Rate 20 07/22/24 08:30 Blood Pressure 147/77 H 07/22/24 08:30 Pulse Oximetry 100 07/22/24 08:30 Oxygen Delivery Room Air 07/22/24 08:30 reviewed Discharge Plan Discharge Clinical Impression: Sinusitis Patient Disposition: Home, Self-Care Condition: Stable Instructions: Antibiotic Form Additional Instructions: Please finish entire course of antibiotic treatment -Alternate Tylenol and Motrin per package directions for fever or pain. -Antihistamine medication Zyrtec/Claritin/Magalis during the day can help improve symptoms. -Use Flonase twice a day for 5 days then daily to help reduce the inflammation and dry up your sinuses. -You can also use Sudafed or Mucinex. Be sure to drink plenty of water with these medications at least 8 ounces with every dose and it is important to drink 8 to 10 glasses of water per day. Water is a natural decongestant -Eat and drink things that are easy to swallow, like tea or soup, or popsicles. -Oral rinses such as: Salt water gargles and/or may use topical anesthetic (eg. Chloraseptic spray) or lozenges to relieve dryness or throat pain). -Frequent hand washing or hand regulator operator is one of the best ways to prevent spread of infection. -Using a vaporizer or humidifier at night will also help thin secretions and help with coughing up phlegm. -Follow up with primary care provider in 2-3 days if condition is not improving; or seek ER visit if you have trouble breathing, cannot drink enough fluids, have muffled voice, difficulty opening your mouth, or severe swelling. Patient Language: Ethiopian Prescriptions: New amoxicillin 875 mg tablet 875 mg PO Q12H Qty: 20 0RF prednisone 20 mg tablet 40 mg PO DAILY Qty: 10 0RF No Action meloxicam 15 mg tablet 15 mg PO DAILY quetiapine 100 mg Tablet 600 mg PO HS citalopram 20 mg tablet 20 mg PO DAILY lisinopril-hydrochlorothiazide [Zestoretic] 20-12.5 mg tablet 1 tablet PO DAILY Qty: 90 1RF Follow-up/Referrals: UNKNOWN,DOCTOR [Non-Staff] - Stand Alone Forms: Work/School Release IP
== END 2024-07-22 08:55 | disposition home or self-care (01) ==
PROVIDERS: Emergency Provider Nurse Practitioner Family
DX: J32.9 Chronic sinusitis, unspecified (principal); F17.210 Nicotine dependence, cigarettes, uncomplicated; I10 Essential (primary) hypertension; J44.9 Chronic obstructive pulmonary disease, unspecified; F41.9 Anxiety disorder, unspecified; F32.A Depression, unspecified
CPT/HCPCS: 99213; G0463

== ENCOUNTER 2025-05-31 17:15 | Emergency (ER) | payer OTHER, SELFPAY ==
--- NOTE | ~2025-05-31 | XR_ITS ---
EXAMINATION: XR ankle LT min 3V, 05/31/2025 17:24 CDT HISTORY: Fall/twisted Lt. ankle, lateral pain swelling COMPARISON: No comparisons available. Findings: Nondisplaced fracture of the lateral malleolus. No significant degenerative changes. Soft tissues unremarkable. Impression: Lateral malleolus fracture Reviewed, dictated and finalized at location P. Impression: Lateral malleolus fracture
--- NOTE | ~2025-05-31 | XR_ITS ---
EXAMINATION: XR knee RT 3V, 05/31/2025 17:24 CDT HISTORY: fall, Rt. knee pain/contusion. COMPARISON: No comparisons available. Findings: Remote fracture of the proximal fibula, no acute fracture is identified No significant degenerative changes. Soft tissues unremarkable. Impression: No acute fracture or malalignment. Reviewed, dictated and finalized at location P. Impression: No acute fracture or malalignment.
[2025-05-31 17:15] VITALS: BP 157/77; PULSE 72; RESP 16; TEMP 37; O2SAT 96
--- NOTE | 2025-05-31 17:21 | ED.GENADULT ---
HPI - General Adult General Chief complaint: Extremity Injury, Lower Stated complaint: ankle injury Time Seen by Provider: 05/31/25 17:21 History of Present Illness HPI narrative: Roseanna is a 55F with a PMH of smoking, HTN , COPD and mood disorder that presented to the ED after a fall. She was hosting a cookout when she rolled her left ankle and landed on her right knee. No LOC and she did not hit her head or neck. She is not able to bear weight. She is not UTD on her tetanus vaccine. Related Data Home Medications ?Medication ?Instructions ?Recorded ?Confirmed ?Last Taken ?Type citalopram 20 mg tablet 20 mg PO DAILY 07/02/19 05/31/25 05/31/25 History quetiapine 100 mg tablet 600 mg PO HS 05/15/20 05/31/25 05/31/25 History levetiracetam 500 mg tablet 1,000 mg PO DAILY 05/31/25 05/31/25 05/31/25 History Allergies Allergy/AdvReac Type Severity Reaction Status Date / Time No Known Allergies Allergy Unknown Verified 05/31/25 17:20 Review of Systems Review of Systems: All systems reviewed & are unremarkable except as noted in HPI and below PMFSH Past Medical History Medical History (Updated 05/31/25 @ 17:47 by Flavio Katz DO) Tibia/fibula fracture Anxiety Depression Chronic back pain Bulging disks at L4 and L5 Back pain Fibroids COPD (chronic obstructive pulmonary disease) Hypertension Surgical History Surgical History History of orthopedic surgery H/O tubal ligation History of tonsillectomy Right tib/fib repair with plate and screws in 2010 Family History Family History Father Hypertension Mother Family history of lymphoma Social History Social History Smoking packs per day: 0.5 Smoking cigarettes per day: 10.0 Years smoked: 30 Smoking pack-years: 15.00 Smoking status: Heavy tobacco smoker Alcohol intake: current Alcohol use details: 1 drink once or twice a month Substance use: never Other substance usage details: Tramadol Exam Const: General: cooperative, healthy appearing, comfortable, no acute distress, well developed, alert, awake and Physically active Orientation/consciousness: oriented to person, oriented to place and oriented to time HENMT: Head: normal to inspection, normocephalic and atraumatic Ears: hearing grossly normal bilaterally and external ears normal Face/Nose/Sinus: Normal external nose present Eyes: General: appearance normal, both eyes and all related structures Periorbital: periorbital findings normal Sclera: sclerae normal Pupils: Equal, round and reactive pupils present Neck: Neck: normal visual inspection Chest: Chest palpation & inspection: normal inspection of the chest Resp: Effort & Inspection: normal respiratory effort, able to speak in complete sentences and no respiratory distress Cardio: Jugular venous distension: no JVD Rate: regular rate Skin: General skin exam: normal color and no rashes or lesions noted Neuro: General: oriented to person, oriented to place and oriented to time Cranial nerves: Yes Equal, round and reactive pupils present Extrem: General: normal to inspection Other: left ankle TTP over the medial side, navicular bone and posterior medial malleolus. Abraison over the right knee. EXAMINATION: XR ankle LT min 3V, 05/31/2025 17:24 CDT HISTORY: Fall/twisted Lt. ankle, lateral pain swelling COMPARISON: No comparisons available. Findings: Nondisplaced fracture of the lateral malleolus. No significant degenerative changes. Soft tissues unremarkable. Impression: Lateral malleolus fracture Course Course Emergency Course: EXAMINATION: XR ankle LT min 3V, 05/31/2025 17:24 CDT HISTORY: Fall/twisted Lt. ankle, lateral pain swelling COMPARISON: No comparisons available. Findings: Nondisplaced fracture of the lateral malleolus. No significant degenerative changes. Soft tissues unremarkable. Impression: Lateral malleolus fracture Vital Signs Vital signs: Vital Signs Temperature 98.6 F 05/31/25 17:15 Pulse Rate 72 05/31/25 17:15 Respiratory Rate 16 05/31/25 17:15 Blood Pressure 157/77 H 05/31/25 17:15 Pulse Oximetry 96 05/31/25 17:15 Temperature 98.6 F 05/31/25 17:15 Pulse Rate 72 05/31/25 17:15 Respiratory Rate 16 05/31/25 17:15 Blood Pressure 157/77 H 05/31/25 17:15 Pulse Oximetry 96 05/31/25 17:15 Procedures Orthopedic Splinting/Casting Injury #1: Splinting/Casting Date: 05/31/25 Splinting/Casting Time: 17:51 Side: left Lower Extremity Injury Location: ankle Splint: prefabricated Pre-Procedure Neuro Vascular Exam: normal Post-Procedure Neuro Vascular Exam: normal Medical Decision Making Vital Signs Vital Signs: Vital Signs Temperature 98.6 F 05/31/25 17:15 Pulse Rate 72 05/31/25 17:15 Respiratory Rate 16 05/31/25 17:15 Blood Pressure 157/77 H 05/31/25 17:15 Pulse Oximetry 96 05/31/25 17:15 Temperature 98.6 F 05/31/25 17:15 Pulse Rate 72 05/31/25 17:15 Respiratory Rate 16 05/31/25 17:15 Blood Pressure 157/77 H 05/31/25 17:15 Pulse Oximetry 96 05/31/25 17:15 Discharge Plan Discharge Clinical Impression: Ankle fracture Patient Disposition: Home Condition: Stable Instructions: Ankle Fracture (ED) Patient Language: Libyan Prescriptions: New hydrocodone-acetaminophen 5-325 mg tablet 1 tablet PO Q8H PRN (Reason: pain) Qty: 10 0RF No Action levetiracetam 500 mg tablet 1,000 mg PO DAILY quetiapine 100 mg Tablet 600 mg PO HS citalopram 20 mg tablet 20 mg PO DAILY Follow-up/Referrals: UNKNOWN,DOCTOR [Non-Staff]
[2025-05-31] MEDS: TETANUS,DIPHTHERIA,AC PERTUSSIS ADULT 0.5 ML (ADACEL) IM (17:52)
[2025-05-31] MEDS: HYDROcodone/acetaminophen (*CRX) 5-325 MG TABLET 1 TAB PO (17:52)
== END 2025-05-31 18:04 | disposition home or self-care (01) ==
PROVIDERS: Emergency Provider Family Medicine; Referring Provider Family Medicine
DX: S82.892A Other fracture of left lower leg, initial encounter for closed fracture (principal); J44.9 Chronic obstructive pulmonary disease, unspecified; I10 Essential (primary) hypertension; F17.210 Nicotine dependence, cigarettes, uncomplicated; Z79.899 Other long term (current) drug therapy; Z23 Encounter for immunization; X50.0XXA Overexertion from strenuous movement or load, initial encounter
CPT/HCPCS: 29515; 73562; 73610; 90471; 90715; 99284; A9270; L4350